=== PATIENT | female | born 1970 | race Caucasian/White ===

== ENCOUNTER 2024-10-10 09:29 | Emergency (ER) | payer SELFPAY ==
[~2024-10-10] VITALS: Ht 149.9 cm; Wt 58.0 kg
[2024-10-10 09:41] VITALS: O2SAT 98
[2024-10-10 15:00] VITALS: BP 144/87; PULSE 80; RESP 16; TEMP 36.72516; O2SAT 98
[2024-10-10] MEDS ORDERED: ACETAMINOPHEN 325MG TABLET PO NR (15:00)
[2024-10-10] MEDS ORDERED: IBUPROFEN 400MG TABLET PO NR (15:00)
== END 2024-10-10 15:29 | disposition home or self-care (01) ==
LOC: ER 09:29
DX: S82.832A Other fracture of upper and lower end of left fibula, initial encounter for closed fracture (principal); I10 Essential (primary) hypertension; W18.39XA Other fall on same level, initial encounter; Y93.89 Activity, other specified; Y92.89 Other specified places as the place of occurrence of the external cause; Y99.8 Other external cause status
CPT/HCPCS: 29505; 73610; 99283